=== PATIENT | female | born 1955 | race Caucasian/White ===

== ENCOUNTER → 2021-05-01 | Outpatient (CLI) | payer OTHER, BC ==
[~2021-05-01] VITALS: Ht 172.7 cm; Wt 113.4 kg
[~2021-05-01] MED LIST: ACETAZOLAMIDE250 M1 PO; CLONIDINE HCL0.1 MG PO; COMBIGAN EYE DR10 ML OPHTHALMIC; COZAAR100 MG PO; LEVOTHYROXINE125 MC1 PO; METFORMIN HCL500 M3 PO; NORVASC10 MG PO; OMEPRAZOLE 20 M20 M1 PO; SPIRONOLACTONE100 M1 PO; TOPROL XL25 MG PO; XALATAN2.5 M1 OPHTHALMIC
--- NOTE | ~2021-05-01 | P ---
[facility] [place] [address] PROCEDURE REPORT Name: ROBIN LYON Room #: REG [facility] Pool#: [id number] Admission: 05/01/21 Attend Phys: Sebastián Jones Discharge: Date of : 51 Report #: [id number] THIS REPORT FOR: cc: Eb Goff MD, Elliott L. MD McElhinney, Christian C. MD ~ cc: Eb Goff MD DATE OF SERVICE: 05/01/2021 PROCEDURE PERFORMED: Upper endoscopy with biopsies and esophageal dilation. HISTORY OF PRESENT ILLNESS: The patient is a 65-year-old female with a history of gastroesophageal reflux disease, taking omeprazole on a daily basis with recurrent dysphagia. She has undergone a previous upper endoscopy with dilation in the past, which was helpful. This was several years ago. Plan is for repeat dilation today. DESCRIPTION OF PROCEDURE: The risks and benefits of the procedure were explained to the patient, those risks including but not limited to bleeding, perforation and the risk of sedation. She understood these risks and gave informed consent. Sedation was given using propofol per anesthesia. Next, using a standard Olympus upper endoscope, the scope was placed in the patient's mouth and advanced under direct vision through the esophagus, stomach and into the second portion of the duodenum. The larynx was normal in appearance. The upper and mid esophagus was normal. In the distal esophagus, a possible short segment of Bowser's esophagus was noted. Biopsies were obtained. No evidence of esophagitis or stricture. Upon entering the stomach, a small hiatal hernia was noted. Overall, the gastric mucosa was normal. The pylorus was normal and patent. The duodenal bulb, first and second portion were all normal. The scope was then brought back up into the patient's stomach and a Savary guidewire was inserted through the scope, leaving the wire in place as the scope was then withdrawn. Next, a 51-K[place]ovan Savary dilation of the esophagus was then performed without difficulty. The wire and dilator removed. The scope was reintroduced into the patient's stomach. There was no evidence of mucosal tears after dilation. The scope was then withdrawn and the procedure terminated. The patient tolerated the procedure well. IMPRESSION: 1. Small hiatal hernia. 2. Possible short segment Bowser's. 3. Otherwise, normal upper endoscopy. RECOMMENDATIONS: 1. Await biopsy results. 2. Continue daily PPI therapy. [address] [address] PROCEDURE REPORT Name: ROBIN LYON Room #: REG CLI Pool#: [id number] Admission: 05/01/21 Attend Phys: Sebastián Jones Discharge: Date of : 51 Report #: [id number] 3. Observe the patient post-dilation. Thank you for allowing me to participate in her care. By: [id number] Sebastián Strange MD /nt
--- NOTE | 2021-05-05 11:07 | PATH ---
[facility] [address] [place] [address] PATHOLOGY RPT PROCEDURE Name: ROBIN LYON Room #: REG MARIO Yan.#: [id number] Admission: 05/01/21 Date of : 51 Discharge: Report #: [id number] Path Case #: [id number] [facility] Accession Number: [id number] . 01 Material submitted: . esophagus - DISTAL ESOPHAGUS R/O PRINGLE'S. Modifiers: distal . 01 Clinical history: . ESOPHAGOGASTRODUODENOSCOPY DYSPHAGIA . 02 Diagnosis: Gastroesophageal mucosa, distal esophagus, rule out Pringle's, endoscopic biopsy: - Gastric cardia-type mucosa with mild chronic inflammation. - Squamous mucosa with mild esophagitis. - Negative for intestinal metaplasia (Pringle's metaplasia) or dysplasia. . (IUV:pit; 05/04/2021) QTP 05/04/2021 1413 Local . 02 Electronically signed: . Liat Mckee MD, Pathologist NPI- [id number] . 01 Gross description: . Received in formalin labeled "Robin Lyon, distal esophagus rule out Pringle's" are 2 whelan-brown soft tissue fragments measuring in aggregate 0.5 x 0.4 x 0.1 cm. The specimen is submitted entirely in A1. ([facility]; 05/02/2021) [facility] 05/02/2021 1200 Local . 02 Pathologist provided ICD-10: K29.50, K20.90 . 02 CPT . 673741 Specimen Comment: A courtesy copy of this report has been sent to [phone], [phone] Specimen Comment: [id number] Specimen Comment: Report sent to DR. MURRAY / DR SHAW Specimen Comment: Report sent to Specimen Comment: A duplicate report has been generated due to demographic updates. Performed at: [address], [place] [id number] [place] [address] PATHOLOGY RPT PROCEDURE Name: ROBIN LYON Room #: REG MARIO Yan.#: [id number] Admission: 05/01/21 Date of : 51 Discharge: Report #: [id number] Path Case #: [id number] MD Beto Christine MD Phone: [phone] Performed at: [address] [facility] [address] [id number] MD Liat Mckee MD Phone: [phone]
== END | disposition home or self-care (01) ==
LOC: GI 08:19
PROVIDERS: ATTEND Specialist
DX: K21.00 Gastro-esophageal reflux disease with esophagitis, without bleeding (principal); K29.50 Unspecified chronic gastritis without bleeding; R13.10 Dysphagia, unspecified; K44.9 Diaphragmatic hernia without obstruction or gangrene; I10 Essential (primary) hypertension; E78.5 Hyperlipidemia, unspecified; E11.9 Type 2 diabetes mellitus without complications; H40.9 Unspecified glaucoma; Z98.890 Other specified postprocedural states; Z79.899 Other long term (current) drug therapy
CPT/HCPCS: 62110; 62900